=== PATIENT | female | born 1975 | race African-American/Black ===

== ENCOUNTER 2020-05-12 14:36 | Outpatient (RCR) | payer MEDICARE ==
[~2020-05-12 14:36] MED LIST: MINERAL OIL/PETROLAT/GLYCERI 6OZ BTL ONE
== END 2020-05-14 ==
LOC: WCC 14:36
PROVIDERS: ATTEND Family Medicine Adult Medicine
DX: I89.0 Lymphedema, not elsewhere classified (principal); R60.0 Localized edema; I87.2 Venous insufficiency (chronic) (peripheral); G89.4 Chronic pain syndrome; D64.9 Anemia, unspecified; E78.2 Mixed hyperlipidemia; K21.9 Gastro-esophageal reflux disease without esophagitis; K59.01 Slow transit constipation; M17.12 Unilateral primary osteoarthritis, left knee; M50.30 Other cervical disc degeneration, unspecified cervical region

== ENCOUNTER → 2020-05-20 | Outpatient (CLI) | payer MEDICARE | LOC: RAD 09:46 | PROVIDERS: ATTEND Family Medicine Adult Medicine | DX: I89.0 Lymphedema, not elsewhere classified (principal) | CPT/HCPCS: 93970 ==

== ENCOUNTER 2020-06-05 10:55 | Outpatient (RCR) | payer MEDICARE ==
[~2020-06-05 10:55] MED LIST changes: +MINERAL OIL/PETROLAT/GLYCERI 2OZ CRM ONE
== END 2020-06-14 ==
LOC: WCC 10:55
PROVIDERS: ATTEND Family Medicine Adult Medicine
DX: I89.0 Lymphedema, not elsewhere classified (principal); R60.0 Localized edema; I87.2 Venous insufficiency (chronic) (peripheral); G89.4 Chronic pain syndrome; M17.12 Unilateral primary osteoarthritis, left knee; M50.30 Other cervical disc degeneration, unspecified cervical region; K21.9 Gastro-esophageal reflux disease without esophagitis; D64.9 Anemia, unspecified; E78.2 Mixed hyperlipidemia; K59.01 Slow transit constipation